=== PATIENT | male | born 1950 | race Caucasian/White ===

== ENCOUNTER → 2023-06-22 | Outpatient (CLI) | payer MEDICARE, BC ==
--- NOTE | 2023-06-23 12:22 | MR ---
EXAMINATION TYPE: MR Prostate wo/w con DATE OF EXAM: 06/22/2023 10:17 AM COMPARISON: None. CLINICAL INDICATION:Male, 73 years old with history of C61 Prostate cancer; Elevated PSA, abnormal US , Prostate cancer TECHNIQUE: Multi-planar, multi-sequence imaging of the pelvis is performed prior to and following the uncomplicated administration of bolus intravenous gadolinium. CONTRAST: 7.5 Gadavist Interpretive Criteria: PI-RADS v2.1 SERUM PSA: 12.53 on 03/04/2023. SURGICAL PATHOLOGY: Biopsy 05/06/2023. Positive for malignancy right base lateral, [place] score of 7 at all 3 biopsy sites that were positive. FINDINGS: Prostatic dimensions: 5.3 x 3.6 x 4.1 cm. cm. "Bullet" Volume:51.20 (PSA density=0.24 ng/mL/mL) CENTRAL GLAND (Central and Transition Zones/CZ+TZ): Post TURP changes to the central gland. Multiple bilateral, heterogenous appearing hypertrophic stromal nodules, without suspicious lesion. (PI-RADS 2) PERIPHERAL ZONE (PZ): High DWI/low ADC signal low T2 signal within the right peripheral zone base measuring 19 x 12 x 13 mm . (PI-RADS 5) SEMINAL VESICLES (SV): Symmetric and unremarkable. PERIPROSTATIC TISSUES: Unremarkable. LYMPH NODES: No enlarged pelvic lymph node. REMAINING PELVIS: Trabeculated bladder wall likely secondary to chronic bladder outlet obstruction. No abnormal free or organized intrapelvic fluid collection. No pathologic bowel dilation or mural thickening. Fat-containing left inguinal hernia with right inguinal hernia containing loops of colon and small ninfa wel. OSSEOUS STRUCTURES: No suspicious osseous abnormality. IMPRESSION: 1. PI-RADS 5 lesion involving the right peripheral zone base measuring up to 19 x 12 mm. 2. Moderate BPH, estimated gland volume 51.20 mL. 3. No suspicious osseous lesion. No lymphadenopathy. No evidence of prostate adenocarcinoma involvin g the periprostatic tissues. 4. Right inguinal hernia containing colon and small bowel no evidence for obstruction. Left inguinal fat-containing hernia. 5. Trabeculated bladder wall which is likely partially due to underdistention and chronic outlet obs truction changes.
== END | disposition home or self-care (01) ==
LOC: RADMRIMAIN 09:07
PROVIDERS: ATTEND Urology
DX: C61 Malignant neoplasm of prostate (principal); N40.0 Benign prostatic hyperplasia without lower urinary tract symptoms; K40.90 Unilateral inguinal hernia, without obstruction or gangrene, not specified as recurrent; N32.89 Other specified disorders of bladder
CPT/HCPCS: 72197; A9585